=== PATIENT | female | born 1955 | race American Indian/Alaskan Native ===

== ENCOUNTER 2019-04-27 19:47 | Emergency (ER) | payer MEDICARE ==
--- NOTE | 2019-04-27 20:04 | Emergency Department Report ---
Blank Doc - Documentation Documentation: This is a 64-year-old female that presents with generalized body aches x2 days. Patient stated that she is detoxing from opoids. This initial assessment/diagnostic orders/clinical plan/treatment(s) is/are subject to change based on patient's health status, clinical progression and re- assessment by fellow clinical providers in the ED. Further treatment and workup at subsequent clinical providers discretion. Patient/guardians urged not to elope from the ED as their condition may be serious if not clinically assessed and managed. Initial orders include: 1- Patient sent to MAIN ED for further evaluation and treatment 2- labs 3- UA
[2019-04-27 21:31] LABS: Basophils # (Auto) 0.1 K/mm3 (0.0-0.1); Basophils % (Auto) 0.8 % (0.0-1.8); Eosinophils % (Auto) 0.3 % (0.0-4.3); Lymphocytes # (Auto) 1.3 K/mm3 (1.2-5.4); Lymphocytes % (Auto) 14.6 % (13.4-35.0); Mean Corpuscular HGB Conc 33 % (30-34); Mean Corpuscular Volume 90 fl (79-97); Monocytes # (Auto) 0.6 K/mm3 (0.0-0.8); Monocytes % (Auto) 6.3 % (0.0-7.3); Platelet Count 314 K/mm3 (140-440); Red Blood Count 3.65 M/mm3 (3.65-5.03); Red Cell Distribution Width 14.2 % (13.2-15.2)
[2019-04-27 22:52] LABS: BUN/Creatinine Ratio 11; Blood Urea Nitrogen 9 mg/dL (7-17); Calcium 6.3 mg/dL (8.4-10.2); Hemolysis Index 10
[2019-04-27] MEDS ORDERED: MORPHINE IV ONE (23:52)
[2019-04-27] MEDS ORDERED: ZOFRAN IV ONE (23:52)
--- NOTE | 2019-04-27 23:53 | Emergency Department Report ---
ED General Adult HPI - General Chief complaint: Pain General Stated complaint: ANXIETY/BODY PAIN Time Seen by Provider: 04/27/19 20:01 Source: patient Mode of arrival: Ambulatory Limitations: Physical Limitation - History of Present Illness Initial comments: Patient presents to the emergency department with the chief complaint of opioid and Xanax withdrawal. Patient states her last Percocet and Xanax was 2 days ago. Patient states in October her primary care physician and she began going to [facility] for medical management and medication refills. Patient is on Lomotil, Percocet, [id number]), Phenergan. Patient states this is due to chronic pain that has been present for years. Patient states that in March she was told that he was [place] that she should go see a pain management doctor which she did but he was not able to fill her meds from her first visit was returned back to her physician at [facility] who prescribed her a month of medications. Patient denies any chest pain, shows poor, or headache. -: Gradual Severity scale (0 -10): 10 Quality: aching Consistency: constant Improves with: none Worsens with: none Associated Symptoms: denies other symptoms - Related Data Home Medications Medication Instructions Recorded Confirmed Last Taken Diphenoxylate/Atropine [Lomotil] 1 tab PO Q4H 12/08/13 05/22/14 12/07/13 1 Duloxetine HCl [Cymbalta] 60 mg PO BID 12/08/13 05/22/14 05/22/14 Morphine Sulfate [Avinza] 30 mg PO DAILY 12/08/13 05/22/14 12/08/13 1 Oxycodone HCl/Acetaminophen 1 each PO Q4H 12/08/13 05/22/14 12/08/13 [Percocet 10-325 mg] 1 Promethazine [Phenergan] 25 mg PO Q6H 12/08/13 05/22/14 12/08/13 1 Dicyclomine [Bentyl] 1 cap PO PRN 05/22/14 05/22/14 05/22/14 Previous Rx's Medication Instructions Recorded Last Taken Type ALPRAZolam [Xanax TAB] 1 mg PO TID PRN #7 tablet 12/08/13 Unknown Rx Ferrous Sulfate [Iron Supplement 325 mg PO DAILY #30 tablet 06/14/14 Unknown Rx 325 Mg tab] ALPRAZolam [Xanax TAB] 1 mg PO BID PRN #10 tab 04/28/19 Unknown Rx Ondansetron [Zofran Odt] 4 mg PO Q4HR PRN #20 tab.rapdis 04/28/19 Unknown Rx Allergies Allergy/AdvReac Type Severity Reaction Status Date / Time codeine Allergy Itching Verified 05/22/14 10:43 prochlorperazine edisylate Allergy Unknown Verified 05/22/14 10:43 [From Compazine] prochlorperazine maleate Allergy Unknown Verified 05/22/14 10:43 [From Compazine] ED Review of Systems ROS: Stated complaint: ANXIETY/BODY PAIN Other details as noted in HPI Comment: All other systems reviewed and negative Constitutional: denies: chills, fever Eyes: denies: eye pain, eye discharge, vision change ENT: denies: ear pain, throat pain Respiratory: denies: cough, shortness of breath, wheezing Cardiovascular: denies: chest pain, palpitations Endocrine: no symptoms reported Gastrointestinal: denies: abdominal pain, nausea, diarrhea Genitourinary: denies: urgency, dysuria, discharge Musculoskeletal: denies: back pain, joint swelling, arthralgia Skin: denies: rash, lesions Neurological: denies: headache, weakness, paresthesias Psychiatric: denies: anxiety, depression Hematological/Lymphatic: denies: easy bleeding, easy bruising ED Past Medical Hx - Past Medical History Previous Medical History?: Yes Hx Hypertension: No Hx Heart Attack/AMI: No Hx GERD: Yes Hx Liver Disease: No Hx Renal Disease: No Hx Arthritis: Yes Hx Seizures: Yes (x1 10 yrs ago. unknown cause) Hx Psychiatric Treatment: Yes (anxiety and depression) Hx Asthma: Yes (hasn't used inhaler recently) Hx COPD: No Hx Tuberculosis: No Hx HIV: No Additional medical history: rheumatoid arthritis/osteomylacia/lupus - Surgical History Past Surgical History?: Yes Hx Cholecystectomy: Yes Hx Appendectomy: Yes Additional Surgical History: hysterectomy/ gastrectomy /tonsils/ femoral hernia repair - Social History Smoking Status: Never Smoker Substance Use Type: None - Medications Home Medications: Home Medications Medication Instructions Recorded Confirmed Last Taken Type ALPRAZolam [Xanax TAB] 1 mg PO TID PRN #7 tablet 12/08/13 05/22/14 Unknown Rx Diphenoxylate/Atropine [Lomotil] 1 tab PO Q4H 12/08/13 05/22/14 12/07/13 History 1 Duloxetine HCl [Cymbalta] 60 mg PO BID 12/08/13 05/22/14 05/22/14 History Morphine Sulfate [Avinza] 30 mg PO DAILY 12/08/13 05/22/14 12/08/13 History 1 Oxycodone HCl/Acetaminophen 1 each PO Q4H 12/08/13 05/22/14 12/08/13 History [Percocet 10-325 mg] 1 Promethazine [Phenergan] 25 mg PO Q6H 12/08/13 05/22/14 12/08/13 History 1 Dicyclomine [Bentyl] 1 cap PO PRN 05/22/14 05/22/14 05/22/14 History Ferrous Sulfate [Iron Supplement 325 mg PO DAILY #30 tablet 06/14/14 Unknown Rx 325 Mg tab] ALPRAZolam [Xanax TAB] 1 mg PO BID PRN #10 tab 04/28/19 Unknown Rx Ondansetron [Zofran Odt] 4 mg PO Q4HR PRN #20 tab.rapdis 04/28/19 Unknown Rx ED Physical Exam - General Limitations: Physical Limitation General appearance: alert, in no apparent distress, anxious - Head Head exam: Present: atraumatic, normocephalic - Eye Eye exam: Present: normal appearance - ENT ENT exam: Present: mucous membranes moist - Neck Neck exam: Present: normal inspection - Respiratory Respiratory exam: Present: normal lung sounds bilaterally. Absent: respiratory distress - Cardiovascular Cardiovascular Exam: Present: normal rhythm, tachycardia. Absent: systolic murmur, diastolic murmur, rubs, gallop - GI/Abdominal GI/Abdominal exam: Present: soft, normal bowel sounds. Absent: distended, tenderness - Extremities Exam Extremities exam: Present: normal inspection - Back Exam Back exam: Present: normal inspection - Neurological Exam Neurological exam: Present: alert, oriented X3, CN II-XII intact. Absent: motor sensory deficit - Psychiatric Psychiatric exam: Present: normal affect, normal mood - Skin Skin exam: Present: warm, dry, intact, normal color. Absent: rash ED Course Vital Signs 04/27/19 04/27/19 19:55 21:01 Temperature 98.3 F 98.2 F Pulse Rate 124 H 124 H Respiratory 20 18 Rate Blood Pressure 126/95 Blood Pressure 126/95 [Left] O2 Sat by Pulse 96 100 Oximetry ED Medical Decision Making - Lab Data Result diagrams: 04/27/19 21:14 04/27/19 21:14 Lab Results 04/27/19 04/27/19 04/27/19 Range/Units 21:06 21:06 21:06 WBC (4.5-11.0) K/mm3 RBC (3.65-5.03) M/mm3 Hgb (10.1-14.3) gm/dl Hct (30.3-42.9) % MCV (79-97) fl MCH (28-32) pg MCHC (30-34) % RDW (13.2-15.2) % Plt Count (140-440) K/mm3 Lymph % (Auto) (13.4-35.0) % Kleberg % (Auto) (0.0-7.3) % Eos % (Auto) (0.0-4.3) % Baso % (Auto) (0.0-1.8) % Lymph # (1.2-5.4) K/mm3 Kleberg # (0.0-0.8) K/mm3 Eos # (0.0-0.4) K/mm3 Baso # (0.0-0.1) K/mm3 Seg Neutrophils % (40.0-70.0) % Seg Neutrophils # (1.8-7.7) K/mm3 Sodium (137-145) mmol/L Potassium (3.6-5.0) mmol/L Chloride (98-107) mmol/L Carbon Dioxide (22-30) mmol/L Anion Gap mmol/L BUN (7-17) mg/dL Creatinine (0.7-1.2) mg/dL Estimated GFR ml/min BUN/Creatinine Ratio % Glucose (65-100) mg/dL Calcium (8.4-10.2) mg/dL Magnesium (1.7-2.3) mg/dL Total Creatine Kinase (30-135) units/L Salicylates < 0.3 L (2.8-20.0) mg/dL Acetaminophen < 5.0 L (10.0-30.0) ug/mL Plasma/Serum Alcohol < 0.01 (0-0.07) % 04/27/19 04/27/19 04/27/19 Range/Units 21:14 21:14 21:16 WBC 9.2 (4.5-11.0) K/mm3 RBC 3.65 (3.65-5.03) M/mm3 Hgb 11.0 (10.1-14.3) gm/dl Hct 33.0 (30.3-42.9) % MCV 90 (79-97) fl MCH 30 (28-32) pg MCHC 33 (30-34) % RDW 14.2 (13.2-15.2) % Plt Count 314 (140-440) K/mm3 Lymph % (Auto) 14.6 (13.4-35.0) % Kleberg % (Auto) 6.3 (0.0-7.3) % Eos % (Auto) 0.3 (0.0-4.3) % Baso % (Auto) 0.8 (0.0-1.8) % Lymph # 1.3 (1.2-5.4) K/mm3 Kleberg # 0.6 (0.0-0.8) K/mm3 Eos # 0.0 (0.0-0.4) K/mm3 Baso # 0.1 (0.0-0.1) K/mm3 Seg Neutrophils % 78.0 H (40.0-70.0) % Seg Neutrophils # 7.1 (1.8-7.7) K/mm3 Sodium 139 (137-145) mmol/L Potassium 3.1 L (3.6-5.0) mmol/L Chloride 96.0 L (98-107) mmol/L Carbon Dioxide 21 L (22-30) mmol/L Anion Gap 25 mmol/L BUN 9 (7-17) mg/dL Creatinine 0.8 (0.7-1.2) mg/dL Estimated GFR > 60 ml/min BUN/Creatinine Ratio 11 % Glucose 132 H (65-100) mg/dL Calcium 6.3 L (8.4-10.2) mg/dL Magnesium 1.40 L (1.7-2.3) mg/dL Total Creatine Kinase 105 (30-135) units/L Salicylates (2.8-20.0) mg/dL Acetaminophen (10.0-30.0) ug/mL Plasma/Serum Alcohol (0-0.07) % - Medical Decision Making Discussed with patient that i was not comfortable prescribing percocet,Xanax, and phenergan for dispo Patient stated she would rather have the xanax because she's afraid of having a seizure from its discontinuation Critical care attestation.: If time is entered above; I have spent that time in minutes in the direct care of this critically ill patient, excluding procedure time. ED Disposition Clinical Impression: Benzodiazepine withdrawal, Opioid withdrawal Disposition: DC-01 TO HOME OR SELFCARE Is pt being admited?: No Does the pt Need Aspirin: No Condition: Stable Instructions: Benzodiazepine Abuse (ED), Opioid Withdrawal (ED) Additional Instructions: return if worse Prescriptions: ALPRAZolam [Xanax TAB] 1 mg PO BID PRN #10 tab PRN Reason: Anxiety Referrals: [facility] [Provider Group] - 3-5 Days [facility] [Provider Group] - 3-5 Days VEGA VOGT MD [Staff Physician] - 3-5 Days Time of Disposition: 23:57
[2019-04-28 00:55] VITALS: BP 123/89
== END 2019-04-28 01:02 | disposition home or self-care (01) ==
LOC: ED 19:47
DX: F11.23 Opioid dependence with withdrawal (principal); F19.239 Other psychoactive substance dependence with withdrawal, unspecified; K21.9 Gastro-esophageal reflux disease without esophagitis; M19.90 Unspecified osteoarthritis, unspecified site; F32.9 Major depressive disorder, single episode, unspecified; F41.9 Anxiety disorder, unspecified; J45.909 Unspecified asthma, uncomplicated; Z90.49 Acquired absence of other specified parts of digestive tract; Z90.710 Acquired absence of both cervix and uterus; Z79.899 Other long term (current) drug therapy; Z88.6 Allergy status to analgesic agent; Z88.8 Allergy status to other drugs, medicaments and biological substances
CPT/HCPCS: 36415; 80048; 82550; 83735; 85025; 96374; 96375; 99283; J2270; J2405; 80320; G0480

== ENCOUNTER 2019-05-02 16:44 | Emergency (ER) | payer MEDICARE ==
--- NOTE | 2019-05-02 17:29 | Emergency Department Report ---
ED Recheck HPI - General Chief Complaint: Medical Clearance Stated Complaint: MEDICATION REFILL Time Seen by Provider: 05/02/19 17:21 Source: patient Mode of arrival: Wheelchair Limitations: Physical Limitation - History of Present Illness Initial Comments: This is a 64-year-old female nontoxic, well in appearance with no signs of distress presents to the ED for medication refill of Xanax and pain medications. Patient stated is in pain management program which was sent by her PCP today. Patient denies any pain. Denies any Patient stated he is asymptotic. Denies any penile discharge, testicular pain, or swelling. Patient denies any urinary symptoms. Patient denies any fever, chills, headache, nausea, vomiting, chest pain or shortness of breathe. denies any other symptoms or complaints. MD Complaint: medication refill request Symptoms Since Prior Visit: no new symptoms Associated Symptoms: none. denies: fever, chills, chest pain, shortness of breath, rash, malaise, nasuea, abdominal pain - Related Data Home Medications Medication Instructions Recorded Confirmed Last Taken Diphenoxylate/Atropine [Lomotil] 1 tab PO Q4H 12/08/13 05/22/14 12/07/13 1 Duloxetine HCl [Cymbalta] 60 mg PO BID 12/08/13 05/22/14 05/22/14 Morphine Sulfate [Avinza] 30 mg PO DAILY 12/08/13 05/22/14 12/08/13 1 Oxycodone HCl/Acetaminophen 1 each PO Q4H 12/08/13 05/22/14 12/08/13 [Percocet 10-325 mg] 1 Promethazine [Phenergan] 25 mg PO Q6H 12/08/13 05/22/14 12/08/13 1 Dicyclomine [Bentyl] 1 cap PO PRN 05/22/14 05/22/14 05/22/14 Previous Rx's Medication Instructions Recorded Last Taken Type ALPRAZolam [Xanax TAB] 1 mg PO TID PRN #7 tablet 12/08/13 Unknown Rx Ferrous Sulfate [Iron Supplement 325 mg PO DAILY #30 tablet 06/14/14 Unknown Rx 325 Mg tab] ALPRAZolam [Xanax TAB] 1 mg PO BID PRN #10 tab 04/28/19 Unknown Rx Ondansetron [Zofran Odt] 4 mg PO Q4HR PRN #20 tab.rapdis 04/28/19 Unknown Rx Allergies Allergy/AdvReac Type Severity Reaction Status Date / Time codeine Allergy Itching Verified 05/22/14 10:43 prochlorperazine edisylate Allergy Unknown Verified 05/22/14 10:43 [From Compazine] prochlorperazine maleate Allergy Unknown Verified 05/22/14 10:43 [From Compazine] ED Review of Systems ROS: Stated complaint: MEDICATION REFILL Other details as noted in HPI Constitutional: denies: chills, fever Eyes: denies: eye pain, eye discharge, vision change ENT: denies: ear pain, throat pain Respiratory: denies: cough, shortness of breath, wheezing Cardiovascular: denies: chest pain, palpitations Endocrine: no symptoms reported Gastrointestinal: denies: abdominal pain, nausea, diarrhea Genitourinary: denies: urgency, dysuria, discharge Musculoskeletal: denies: back pain, joint swelling, arthralgia Skin: denies: rash, lesions Neurological: denies: headache, weakness, paresthesias Psychiatric: denies: anxiety, depression Hematological/Lymphatic: denies: easy bleeding, easy bruising ED Past Medical Hx - Past Medical History Hx Hypertension: No Hx Heart Attack/AMI: No Hx GERD: Yes Hx Liver Disease: No Hx Renal Disease: No Hx Arthritis: Yes Hx Seizures: Yes (x1 10 yrs ago. unknown cause) Hx Psychiatric Treatment: Yes (anxiety and depression) Hx Asthma: Yes (hasn't used inhaler recently) Hx COPD: No Hx Tuberculosis: No Hx HIV: No Additional medical history: rheumatoid arthritis/osteomylacia/lupus - Surgical History Hx Cholecystectomy: Yes Hx Appendectomy: Yes Additional Surgical History: hysterectomy/ gastrectomy /tonsils/ femoral hernia repair - Social History Smoking Status: Never Smoker Substance Use Type: None - Medications Home Medications: Home Medications Medication Instructions Recorded Confirmed Last Taken Type ALPRAZolam [Xanax TAB] 1 mg PO TID PRN #7 tablet 12/08/13 05/22/14 Unknown Rx Diphenoxylate/Atropine [Lomotil] 1 tab PO Q4H 12/08/13 05/22/14 12/07/13 History 1 Duloxetine HCl [Cymbalta] 60 mg PO BID 12/08/13 05/22/14 05/22/14 History Morphine Sulfate [Avinza] 30 mg PO DAILY 12/08/13 05/22/14 12/08/13 History 1 Oxycodone HCl/Acetaminophen 1 each PO Q4H 12/08/13 05/22/14 12/08/13 History [Percocet 10-325 mg] 1 Promethazine [Phenergan] 25 mg PO Q6H 12/08/13 05/22/14 12/08/13 History 1 Dicyclomine [Bentyl] 1 cap PO PRN 05/22/14 05/22/14 05/22/14 History Ferrous Sulfate [Iron Supplement 325 mg PO DAILY #30 tablet 06/14/14 Unknown Rx 325 Mg tab] ALPRAZolam [Xanax TAB] 1 mg PO BID PRN #10 tab 04/28/19 Unknown Rx Ondansetron [Zofran Odt] 4 mg PO Q4HR PRN #20 tab.rapdis 04/28/19 Unknown Rx ED Physical Exam - General Limitations: Physical Limitation General appearance: alert, in no apparent distress - Head Head exam: Present: atraumatic, normocephalic - Neck Neck exam: Present: normal inspection, full ROM. Absent: tenderness, meningismus, lymphadenopathy - Respiratory Respiratory exam: Present: normal lung sounds bilaterally. Absent: respiratory distress - Cardiovascular Cardiovascular Exam: Present: regular rate, normal rhythm - Extremities Exam Extremities exam: Present: normal inspection, full ROM - Back Exam Back exam: Present: normal inspection, full ROM - Neurological Exam Neurological exam: Present: alert, oriented X3 - Psychiatric Psychiatric exam: Present: normal affect, normal mood - Skin Skin exam: Present: warm, dry, intact, normal color. Absent: rash ED Course - Reevaluation(s) Reevaluation #1: 05/02/19 17:30 Patient is speaking in full sentences with no signs of distress noted. ED Recheck MDM - Medical Decision Making [employer] shows that patient has another dose left of xanax. Will refer patient to outpatient treatment. Patient was instructed to Follow-up with a primary care doctor in 2 days or if symptoms worsen and continue return to emergency room as soon as possible. At time of discharge, the patient does not seem toxic or ill in appearance. No acute signs of distress noted. Patient agrees to discharge treatment plan of care. No further questions noted by the patient. Critical care attestation.: If time is entered above; I have spent that time in minutes in the direct care of this critically ill patient, excluding procedure time. ED Disposition Clinical Impression: Medication refill, Drug dependence Disposition: DC-01 TO HOME OR SELFCARE Is pt being admited?: No Does the pt Need Aspirin: No Condition: Stable Additional Instructions: Follow-up with a primary care doctor in 3-5 days or if symptoms worsen and continue return to the emergency department as soon as possible. Referrals: PRIMARY CARE, [Referring] - 3-5 Days STEFAN BENAVIDEZ MD [Staff Physician] - 3-5 Days [facility] [Outside] - 3-5 Days [facility] [Outside] - 3-5 Days
== END 2019-05-02 18:03 | disposition home or self-care (01) ==
LOC: ED 16:44
DX: F13.20 Sedative, hypnotic or anxiolytic dependence, uncomplicated (principal); F41.9 Anxiety disorder, unspecified; K21.9 Gastro-esophageal reflux disease without esophagitis; M19.90 Unspecified osteoarthritis, unspecified site; F32.9 Major depressive disorder, single episode, unspecified; J45.909 Unspecified asthma, uncomplicated; Z76.0 Encounter for issue of repeat prescription; Z90.49 Acquired absence of other specified parts of digestive tract; Z90.710 Acquired absence of both cervix and uterus; Z79.899 Other long term (current) drug therapy; Z88.5 Allergy status to narcotic agent; Z88.8 Allergy status to other drugs, medicaments and biological substances